=== PATIENT | female | born 1945 ===

== ENCOUNTER 2017-02-09 00:31 | Observation (INO) | payer MEDICAID ==
--- NOTE | 2017-02-09 01:35 | ED PDOC ---
HPI: Chest Pain Time Seen by Provider: 02/09/17 00:38 Chief Complaint (Nursing): Chest Pain Chief Complaint (Provider): Chest Pain History Per: Patient History/Exam Limitations: no limitations Current Symptoms Are (Timing): Still Present Associated Symptoms: Other (lower extremity swelling) Additional Complaint(s): 71 year old female presents to ED with complaints of chest pain and SOB since earlier today and has a past medical history of end-stage renal disease and HTN. Patient notes that she arrived from the [facility] yesterday and was scheduled to undergo dialysis tomorrow. (-) fever or chills, (+) bilateral lower extremity swelling (improving with time). PCP: ARELIS Past Medical History Reviewed: Historical Data, Nursing Documentation, Vital Signs Vital Signs: Last Vital Signs Temp 98.5 F 02/09/17 06:36 Pulse 76 02/09/17 06:36 Resp 20 02/09/17 06:36 BP 142/68 02/09/17 06:36 Pulse Ox 99 02/09/17 06:40 - Medical History PMH: HTN, End Stage Renal Disease - Family History Family History: States: Unknown Family Hx - Living Arrangements Living Arrangements: With Family - Social History Drugs: Denies - Home Medications Home Medications: Ambulatory Orders Medication Instructions Recorded amLODIPine [Norvasc] 5 mg PO DAILY 02/09/17 - Allergies Allergies/Adverse Reactions: Allergies Allergy/AdvReac Type Severity Reaction Status Date / Time No Known Allergies Allergy Verified 02/09/17 00:38 FELICIA Risk Score for UA/NSTEMI - FELICIA Risk Score Age > 64: YES FELICIA Score: 1 Risk %: 5% Curb-65 Severity Score - CURB-65 Severity Score Confusion: No Respiratory Rate greater than/equal to 30: No Systolic BP <90 or Diastolic BP less than/equal 60mmHg: No Age >64: Yes Curb-65 Score: 1 Percentage 30-day mortality: 2.7% Wells Criteria for PE - Wells Criteria for Pulmonary Embolism Heart Rate >100: No Immobilization at least 3 days;Surgery previous 4 weeks: No Hemoptysis: No Malignancy w/treatment within 6 months, or palliative: No Total Score: 0 Review of Systems ROS Statement: Except As Marked, All Systems Reviewed And Found Negative Constitutional: Negative for: Fever, Chills Cardiovascular: Positive for: Chest Pain Respiratory: Positive for: Shortness of Breath Musculoskeletal: Positive for: Other (bilateral lower extremity swelling) Physical Exam - Reviewed Nursing Documentation Reviewed: Yes Vital Signs Reviewed: Yes - Physical Exam Appears: Positive for: Well, Non-toxic, No Acute Distress Head Exam: Positive for: ATRAUMATIC, NORMOCEPHALIC Skin: Positive for: Normal Color, Warm, Dry Eye Exam: Positive for: Normal appearance, EOMI, PERRL ENT: Positive for: Normal ENT Inspection Neck: Positive for: Normal, Painless ROM, Supple Cardiovascular/Chest: Positive for: Regular Rate, Rhythm. Negative for: Murmur Respiratory: Positive for: Normal Breath Sounds. Negative for: Respiratory Distress Gastrointestinal/Abdominal: Positive for: Normal Exam, Soft. Negative for: Tenderness Back: Positive for: Normal Inspection Extremity: Positive for: Normal ROM, Swelling (trace pitting edema in bilateral lower extremities). Negative for: Deformity Neurologic/Psych: Positive for: Alert, Oriented. Negative for: Motor/Sensory Deficits - Laboratory Results Result Diagrams: 02/09/17 01:30 02/09/17 01:30 - ECG O2 Sat by Pulse Oximetry: 99 (RA) Pulse Ox Interpretation: Normal Medical Decision Making Medical Decision Makin Initial impression: r/o ACS v renal failure Initial plan: * T&S * EKG * Labs * Trop I * PTT/PT * CXR * UA [id number] Chou (hospitalist), who accepts patient admission for OBS TELE. Will consult with nephrology for dialysis. [address] Henry (nephrology), who will dialyze patient today in OBS TELE. Scribe Attestation: Documented by Virginia Rowe acting as a scribe for Diaz Webb MD. Scribe Attestation: All medical record entries made by the Scribe were at my direction and personally dictated by me. I have reviewed the chart and agree that the record accurately reflects my personal performance of the history, physical exam, medical decision making, and the department course for this patient. I have also personally directed, reviewed, and agree with the discharge instructions and disposition. Disposition - Clinical Impression Clinical Impression: Chest pain, End stage renal disease, Hyperkalemia - Patient ED Disposition Is Patient to be Admitted: Yes (OBS TELE) Discussed With : Lex Mughni Doctor Will See Patient In The: Hospital Counseled Patient/Family Regarding: Studies Performed, Diagnosis - Disposition Disposition Time: 02:24 Condition: STABLE - Pt Status Changed To: Hospital Disposition Of: Observation
[2017-02-09 01:46] LABS: BASO % 0.6 % (0.0-2.0); EOS # 0.9 K/uL (0.0-0.7); EOS % 11.3 % (0.0-4.0); LYMPH # 1.9 K/uL (1.0-4.3); LYMPH % 24.5 % (20.0-40.0); MEAN CELL VOLUME 94.1 fl (81.0-99.0); MEAN CORPUSCULAR HEMOGLOBIN 30.4 pg (27.0-31.0); MEAN CORPUSCULAR HGB CONC 32.3 g/dL (33.0-37.0); MEAN PLATELET VOLUME 9.7 fl (7.2-11.7); MONO # 0.6 K/uL (0.0-0.8); MONO % 8.1 % (0.0-10.0); NEUT # 4.3 K/uL (1.8-7.0); NEUT % 55.5 % (50.0-75.0); NRBC % 0.1 % (0.0-0.0); RBC 3.62 Mil/uL (3.80-5.20); WHITE BLOOD COUNT 7.7 K/uL (4.8-10.8)
[2017-02-09 01:54] LABS: SQUAMOUS EPITHIAL 1 /hpf (0-5); URINE BACTERIA RARE (<OCC); URINE BILIRUBIN NEGATIVE (NEGATIVE); URINE BLOOD SMALL (NEGATIVE); URINE CLARITY CLEAR (Clear); URINE COLOR STRAW (YELLOW); URINE GLUCOSE (UA) 50 mg/dL (Normal); URINE NITRATE NEGATIVE (NEGATIVE); URINE PROTEIN 100 mg/dL (NEGATIVE); URINE UROBILINOGEN 0.2-1.0 mg/dL (0.2-1.0)
[2017-02-09 02:00] LABS: CALCIUM 8.5 mg/dL (8.4-10.2)
[2017-02-09 02:01] LABS: URINE LEUKOCYTE ESTERASE SMALL Leu/uL (Negative)
[2017-02-09 02:05] LABS: INR 0.9 (0.9-1.2); PARTIAL THROMBOPLASTIN TIME 28.4 Seconds (25.6-37.1); PROTHROMBIN TIME 9.6 Seconds (9.8-13.1)
[2017-02-09 02:14] LABS: TROPONIN I 0.02 ng/mL (0.00-0.120)
[2017-02-09] MEDS ORDERED: Insulin Regular 100 units/ml IV STA (02:39)
[2017-02-09] MEDS ORDERED: Sod Polystyrene Sulf 15 gm/60 ml Oral Susp PO ONE (02:40)
[2017-02-09] MEDS ORDERED: Dextrose 50% SYRINGE Inj (50 ml) IVP ONE ×3 (02:40→13:58)
[2017-02-09] MEDS ORDERED: Sod Polystyrene Sulf 15 gm/60 ml Oral Susp ONE (03:55)
[2017-02-09] MEDS ORDERED: Dextrose 50% SYRINGE Inj (50 ml) ONE ×3 (03:55→08:39)
[2017-02-09] MEDS ORDERED: Insulin Regular 100 units/ml ONE (03:55)
[2017-02-09] MEDS ORDERED: Albuterol-Ipratrop 3 mg / 0.5 (3 ml) UD INH PRN (04:31)
--- NOTE | 2017-02-09 07:06 | CP.PCM.HP ---
History of Present Illness - History of Present Illness History of Present Illness: Chief Complaint: Chest Tightness & SOB HPI: Pt is a 71 year old female who comes from the [facility] with a pmhx of ESRD on HD ( & ) in the [facility], port placememnt in the right subclavian, HTN and anemia according to the family at bedside. PT family giving history. She presents to ED with complaints of chest tightness which has subsequently resolved with negative trop x 1 and an EKG showing peaked t waves with a K of 5.6. PT SOB is associated with elevated pro bnp level and bilateral pedal edema. PT had arrived from the [facility] yesterday and was scheduled to undergo dialysis tomorrow however presented here bc the family was worried about her symptoms. denies fever, chills, active chest pain, denies SOB currently only has (+) bilateral lower extremity swelling. Reed score 2 PCP: NONE Last Vital Signs Temp 98.0 F 02/09/17 05:16 Pulse 74 02/09/17 05:16 Resp 20 02/09/17 05:16 BP 177/81 H 02/09/17 05:16 Pulse Ox 99 02/09/17 05:20 PMH: HTN, End Stage Renal Disease, anemia Social HX: no toxic habits, ex smoker of over 30 yrs Family History: no Family Hx, lives with family ( granddaughter) Living Arrangements: With Family Ambulatory Orders Medication Instructions Recorded amLODIPine [Norvasc] 5 mg PO DAILY 02/09/17 Allergies Allergy/AdvReac Type Severity Reaction Status Date / Time No Known Allergies Allergy Verified 02/09/17 00:38 14 ROS- positive for pedal edema all the rest are currently negative - ECG O2 Sat by Pulse Oximetry: 99 (RA) Pulse Ox Interpretation: Normal Dr. Henry (nephrology), who will dialyze patient today in OBS TELE. Present on Admission - Present on Admission Any Indicators Present on Admission: No History of DVT/PE: No History of Uncontrolled Diabetes: No Urinary Catheter: No Decubitus Ulcer Present: No Review of Systems - Constitutional Constitutional: absent: As Per HPI, Anorexia, Chills, Daytime Sleepiness, Excessive Sweating, Fatigue, Fever, Frequent Falls, Headache, Increased Appetite , Lethargy, Malaise, Night Sweats, Snoring, Sleep Apnea, Weight Gain, Weight Loss, Weakness, Other - EENT Eyes: absent: As Per HPI, Blind Spots, Blurred Vision, Change in Vision, Decreased Night Vision, Diplopia, Discharge, Dry Eye, Exophthalmos, Floaters, Irritation, Itchy Eyes, Loss of Peripheral Vision, Pain, Photophobia, Requires Corrective Lenses, Sees Flashes, Spots in Vision, Tunnel Vision, Other Visual Disturbances, Loss of Vision, Other Ears: absent: As Per HPI, Decreased Hearing, Ear Discharge, Ear Pain, Tinnitus, Abnormal Hearing, Disequilibrium, Dizziness, Other Nose/Mouth/Throat: absent: As Per HPI, Epistaxis, Nasal Congestion, Nasal Discharge, Nasal Obstruction, Nasal Trauma, Nose Pain, Post Nasal Drip, Sinus Pain, Sinus Pressure, Bleeding Gums, Change in Voice, Dental Pain, Dry Mouth, Dysphagia, Halitosis, Hoarsness, Lip Swelling, Mouth Lesions, Mouth Pain, Odynophagia, Sore Throat, Throat Swelling, Tongue Swelling, Facial Pain, Neck Pain, Neck Mass, Other - Cardiovascular Cardiovascular: Chest Pain, Dyspnea on Exertion, Orthopnea - Gastrointestinal Gastrointestinal: absent: As Per HPI, Abdominal Pain, Belching, Bloating, Change in Bowel Habits, Change in Stool Character, Coffee Ground Emesis, Constipation, Cramping, Diarrhea, Dyspepsia, Dysphagia, Early Satiety, Excessive Flatus, Fecal Incontinence, Heartburn, Hematemesis, Hematochezia, Loose Stools, Melena, Nausea, Odynophagia, Temesmus, Vomiting, Other - Musculoskeletal Musculoskeletal: absent: As Per HPI, Abnormal Gait, Arthralgias, Atrophy, Back Pain, Deformity, Joint Swelling, Limited Range of Motion, Loss of Height, Muscle Cramps, Muscle Weakness, Myalgias, Neck Pain, Numbness, Radiating Pain into Limb, Stiffness, Tingling, Other - Integumentary Integumentary: absent: As Per HPI, Acne, Alopecia, Bleeding Lesions, Change in Hair, Change in Nails, Change in Pigmentation, Changing Lesions, Dry Skin, Erythema, Furuncle, Hirsutism, Lesions, New Lesions, Non-Healing Lesions, Photosensitivity, Pruritus, Rash, Skin Pain, Skin Ulcer, Sores, Striae, Swelling , Unusual Bruising, Wounds, Jaundice, Other - Neurological Neurological: absent: As Per HPI, Abnormal Gait, Abnormal Hearing, Abnormal Movements, Abnormal Speech, Behavioral Changes, Burning Sensations, Confusion, Convulsions, Disequilibrium, Dizziness, Numbness, Focal Weakness, Frequent Falls , Headaches, Lack of Coordination, Loss of Vision, Memory Loss, Paresthesias, Radicular Pain, Restless Legs, Sensory Deficit, Syncope, Tingling, Tremor, Vertigo, Weakness, Other Visual Disturbances, Other - Psychiatric Psychiatric: absent: As Per HPI, Abnormal Sleep Pattern, Anhedonia, Anxiety, Auditory Hallucinations, Behavioral Changes, Change in Appetite, Change in Libido, Confusion, Depression, Difficulty Concentrating, Hallucinations, Homicidal Ideation, Hopelessness, Irritability, Memory Loss, Mood Swings, Panic Attacks, Paranoia, Suicidal Ideation, Visual Hallucinations, Tactile Hallucinations, Other Past Patient History - Past Medical History & Family History Past Medical History?: No - Past Social History Smoking Status: Former Smoker Chewing Tobacco Use: No Cigar Use: No Drugs: Denies Home Situation {Lives}: With Family - CARDIAC Hx Hypertension: Yes - PULMONARY Hx Respiratory Disorders: No - NEUROLOGICAL Hx Neurological Disorder: No - HEENT Hx HEENT Problems: No - RENAL Hx Chronic Kidney Disease: Yes (ERSD) - ENDOCRINE/METABOLIC Hx Endocrine Disorders: No - HEMATOLOGICAL/ONCOLOGICAL Hx Blood Disorders: No - INTEGUMENTARY Hx Dermatological Problems: No - MUSCULOSKELETAL/RHEUMATOLOGICAL Hx Musculoskeletal Disorders: No - GENITOURINARY/GYNECOLOGICAL Hx Genitourinary Disorders: No - PSYCHIATRIC Hx Psychophysiologic Disorder: No Meds Allergies/Adverse Reactions: Allergies Allergy/AdvReac Type Severity Reaction Status Date / Time No Known Allergies Allergy Verified 02/09/17 00:38 Physical Exam - Head Exam Head Exam: ATRAUMATIC, NORMAL INSPECTION, NORMOCEPHALIC - Eye Exam Eye Exam: EOMI, Normal appearance, PERRL Pupil Exam: NORMAL ACCOMODATION - ENT Exam ENT Exam: Mucous Membranes Moist, Normal Exam - Respiratory Exam Respiratory Exam: Decreased Breath Sounds, NORMAL BREATHING PATTERN - Cardiovascular Exam Cardiovascular Exam: REGULAR RHYTHM, +S1, +S2 - GI/Abdominal Exam GI & Abdominal Exam: Normal Bowel Sounds - Extremities Exam Extremities exam: Positive for: pedal edema - Back Exam Back exam: NORMAL INSPECTION - Neurological Exam Neurological exam: CN II-XII Intact, Oriented x3 - Psychiatric Exam Psychiatric exam: Normal Affect, Normal Mood - Skin Skin Exam: Dry, Intact Results - Vital Signs Recent Vital Signs: Last Vital Signs Temp 98.5 F 02/09/17 06:36 Pulse 76 02/09/17 06:36 Resp 20 02/09/17 06:36 BP 142/68 02/09/17 06:36 Pulse Ox 99 02/09/17 06:40 - Labs Result Diagrams: 02/09/17 01:30 02/09/17 01:30 Labs: Laboratory Results - last 24 hr 02/09/17 02/09/17 03:35 04:55 Free T4 0.95 Blood Type A POSITIVE Antibody Screen Positive Antibody Identification Anti K BBK History Checked No verified bt - EKG Data EKG Interpreted by: Other (diffuse peaked t waves) EKG shows normal: Sinus rhythm Assessment & Plan - Assessment and Plan (Free Text) Assessment: PT is a 71 yo female with ESRD on HD, unknown cause of renal failure this past year who gets dilaysis 2x weekly normally at the [facility]. Pt comes in with chest discomfort and SOB which seemed to have resolved in th ED. Trop x 1 negative. 1) Chest pain- rule out ACS, atypical chest pain - serial trop and EKG - echo - shuttle driver - plavix and bblocker - 2) ESRD on HD- pt to get Dilaysis late in AM 3) hyperkalemia- pt recieved calcium and kayexelate, d50 insulin 4) HTN- pt started on medication 5) Anemia- hg stable 6) Gi and DVT prophylaxis - Date & Time Date: 02/09/17 Time: 07:21
--- NOTE | 2017-02-09 07:22 | CARD ---
APPROVED REPORT EKG Measurement Heart [id number] [place] [id number] <Conclusion> Normal sinus rhythm Right bundle branch block Abnormal ECG
[2017-02-09 07:46] LABS: CALCIUM 8.9 mg/dL (8.4-10.2)
[2017-02-09 07:57] LABS: TROPONIN I 0.025 ng/mL (0.00-0.120)
--- NOTE | 2017-02-09 09:37 | PCM.RRTMUL ---
<Deisy Huynh - Last Filed: 02/09/17 09:37> COLLAR TURNER OPERATOR Nurse Assessment - Vital Signs Blood Pressure:: 204/82 Pulse Rate:: 81 Respiratory Rate:: 20 Temperature:: 97.3 F I.Reason for COLLAR TURNER OPERATOR - A) Acute Change in Patient: Subjective: COLLAR TURNER OPERATOR called 08:32 am for altered mental status. Patient is a 71 yo F with hx ESRD, received insulin in the ED due to elevated K. Fingerstick glucose 26. On arrival pt appeared lethatric and drowsy, was not verbalizing, was breathing and saturating well. Vitals: BP 221/73, HR 77 - hypertensive urgency. Pt was given 1.5 ampules D50 and 10 mg hydralazine via IVP. EKG was performed that showed no acute changes from prior EKG. Repeat fingerstick was 332, repeat blood pressure was 184/71, HR 73. Patient became more responsive and verbal, was responding to questions. Assessment: 71 yo F with hx ESRD who received insulin in the ED due to elevated K in ED, had COLLAR TURNER OPERATOR called due to hypoglycemia (blood glucose 26) and found to have hypertensive urgency during COLLAR TURNER OPERATOR. Plan: Accuchecks Q2H until 12:00 Resume home anti-hypertensive medications (metoprolol, amlodipine) <Susana Love - Last Filed: 02/09/17 13:56> Attending/Attestation - Attestation I have personally seen and examined this patient.: Yes I have fully participated in the care of the patient.: Yes I have reviewed all pertinent clinical information, including history, physical exam and plan: Yes Notes (Text): Responded to the COLLAR TURNER OPERATOR with the residents, case discussed, agree with above note. COLLAR TURNER OPERATOR called bec of lethargy - pt found to be Hypoglycemic - Glucose =26 Pt is a 71y lady with hx of ESRD on HD. Received Regular Insulin and D50 for Hyperkalemia in the ED. BP noted to be markedly elevated 202/84 A/P: 1. AMS sec to Hypoglycemia 2. Hypertensive Urgency - D50 1 1/2 ampule given - pt became more alert after infusion, rpt glucose 320 - Hydralazine 10mg IV x 1 , rpt BP 180 systolic
--- NOTE | 2017-02-09 11:11 | RAD ---
HISTORY: ESRD, CP and SOB COMPARISON: No prior. TECHNIQUE: Chest PA and lateral FINDINGS: LUNGS: Hyperinflation, manifestations of COPD. No active pulmonary disease. PLEURA: No significant pleural effusion identified. No pneumothorax apparent. CARDIOVASCULAR: No radiographic findings to suggest acute or significant cardiovascular disease. Satisfactory position of dialysis catheter. OSSEOUS STRUCTURES: No significant abnormalities. VISUALIZED UPPER ABDOMEN: Normal. OTHER FINDINGS: None. IMPRESSION: No active disease.
--- NOTE | 2017-02-09 12:51 | CARD ---
APPROVED REPORT EXAM: Two-dimensional and M-mode echocardiogram with Doppler and color Doppler. Other Information Quality : GoodRhythm : NSR INDICATION ELEVATED BNP 2D DIMENSIONS IVSd1.63 (0.7-1.1cm)LVDd4.43 (3.9-5.9cm) LVOT Diameter1.91 (1.8-2.4cm)PWd0.83 (0.7-1.1cm) IVSs1.25 (0.8-1.2cm)LVDs3.47 (2.5-4.0cm) FS (%) 21.8 %PWs1.21 (0.8-1.2cm) M-Mode DIMENSIONS Left Atrium (MM)4.26 (2.5-4.0cm)IVSd1.29 (0.7-1.1cm) Aortic Root2.26 (2.2-3.7cm)LVDd4.38 (4.0-5.6cm) Aortic Cusp Exc.1.59 (1.5-2.0cm)PWd1.38 (0.7-1.1cm) IVSs1.47 cmFS (%) 39 % LVDs2.68 (2.0-3.8cm)PWs1.71 cm Aortic Valve AI P 1/2 [id number] Mitral Valve E/A ratio0.0 TDI E/Lateral E'0.0E/Medial E'0.0 Pulmonary Valve PV Peak Xtxzhtko07.4cm/s Tricuspid Valve TR Peak Ajunmaxo825sr/sRAP [id number] Peak Gr.42mmHg [id number] LEFT VENTRICLE The left ventricle is normal size. There is borderline to mild concentric left ventricular hypertrophy. Left ventricle systolic function is normal. The Ejection Fraction is 65-70%. There is normal LV segmental wall motion. Mitral inflow signal severely affected by AR. RIGHT VENTRICLE The right ventricle is normal size. There is normal right ventricular wall thickness. The right ventricular systolic function is normal. ATRIA The left atrium is moderately dilated. The right atrium is moderately dilated. AORTIC VALVE The aortic valve is mildly to moderately sclerotic. There is moderate aortic regurgitation. There is no aortic valvular stenosis. MITRAL VALVE The mitral valve is normal in structure. There is no evidence of mitral valve prolapse. There is no mitral valve stenosis. Mitral regurgitation is moderate. TRICUSPID VALVE The tricuspid valve is normal in structure. There is moderate to severe tricuspid regurgitation. Right ventricular systolic pressure is estimated at 55 mmHg. There is moderate to severe pulmonary hypertension. PULMONIC VALVE The pulmonary valve is normal in structure and function. There is trace to mild pulmonic valvular regurgitation. GREAT VESSELS The aortic root is normal in size. The IVC was not visualized. PERICARDIAL EFFUSION The pericardium appears normal. <Conclusion> The left ventricle is normal size. There is borderline to mild concentric left ventricular hypertrophy. There is normal LV segmental wall motion. Left ventricle systolic function is normal. The Ejection Fraction is 65-70%. The left atrium is moderately dilated. The right atrium is moderately dilated. The aortic valve is mildly to moderately sclerotic. There is moderate aortic regurgitation. Mitral regurgitation is moderate. There is moderate to severe tricuspid regurgitation. There is moderate to severe pulmonary hypertension.
--- NOTE | 2017-02-09 13:19 | CARD ---
APPROVED REPORT EKG Measurement Heart [id number] [place] 150P48 [id number] <Conclusion> Normal sinus rhythm Right bundle branch block Abnormal ECG
--- NOTE | 2017-02-09 13:35 | NM ---
COMPARISON: February 08, 2017. TECHNIQUE: 41.6 mCi technetium 99-m DTPA aerosol. 5.1 mCI technetium 99-m MAA administered intravenously. FINDINGS: VENTILATION COMPONENT: Heterogeneous ventilation. Retention of radionuclide in the central tracheobronchial tree an ingested radionuclide in the esophagus and stomach. PERFUSION COMPONENT: Matched defects right lower lobe the ventilatory defect larger than the perfusion component. IMPRESSION: Low probability ventilation perfusion scan for pulmonary embolism.
[2017-02-09 17:46] LABS: HEMOGLOBIN 11.2 g/dL (12.0-16.0); MEAN CELL VOLUME 93.9 fl (81.0-99.0); RBC 3.6 Mil/uL (3.80-5.20); WHITE BLOOD COUNT 4.9 K/uL (4.8-10.8)
[2017-02-09 17:53] LABS: CALCIUM 8.3 mg/dL (8.4-10.2)
[2017-02-09 18:04] LABS: TROPONIN I 0.029 ng/mL (0.00-0.120)
--- NOTE | 2017-02-09 18:09 | CP.PCM.CON ---
History of Present Illness - History of Present Illness History of Present Illness: 71 yo F w/ pmh of ESRD on HD (since January 2016, reportedly due to "chronic glomerulonephritis"), presented to ED this morning with shortness of breath and chest pain; patient was found to be hyperkalemic and admitted for possible PE and to r/o [place]; nephrology service being consulted for ESRD care; Patient has been on HD since January 2016 in the [facility]; etiology of renal failure unclear; per family, patient had been bedridden for 2 months when care initially started but has since improved and is ambulatory; Gets HD every Sunday and Sunday (last session 3 days ago per routine); dry weight is about 47 kg and generally gets about 2L UF; Patient reportedly had AVF but due to severe pain was ligated? Currently being dialyzed via R IJ HD catheter; Reports getting shortness of breath on exertion this morning and so brought to ED; otherwise reports urinating well; Review of Systems - Constitutional Constitutional: Chills. absent: Fever Additional comments: Good appetite - EENT Eyes: absent: Blurred Vision Nose/Mouth/Throat: absent: Dysphagia - Cardiovascular Cardiovascular: Chest Pain, Dyspnea on Exertion - Respiratory Respiratory: Dyspnea on Exertion - Gastrointestinal Gastrointestinal: Diarrhea. absent: Nausea, Vomiting - Genitourinary Genitourinary: absent: Difficulty Urinating, Dysuria - Integumentary Integumentary: absent: Pruritus, Rash - Neurological Neurological: Dizziness. absent: Sensory Deficit - Psychiatric Psychiatric: Abnormal Sleep Pattern Additional comments: denies depression; - Hematologic/Lymphatic Hematologic: absent: Easy Bruising Past Patient History - Past Medical History & Family History Past Medical History?: Yes Pertinent Family History: No significant family history per patient; - Past Social History Smoking Status: Former Smoker Chewing Tobacco Use: No Cigar Use: No Drugs: Denies Home Situation {Lives}: With Family - CARDIAC Hx Hypertension: Yes - PULMONARY Hx Respiratory Disorders: No - NEUROLOGICAL Hx Neurological Disorder: No - HEENT Hx HEENT Problems: No - RENAL Hx Chronic Kidney Disease: Yes (ERSD) - ENDOCRINE/METABOLIC Hx Endocrine Disorders: No - HEMATOLOGICAL/ONCOLOGICAL Hx Blood Disorders: No - INTEGUMENTARY Hx Dermatological Problems: No - MUSCULOSKELETAL/RHEUMATOLOGICAL Hx Musculoskeletal Disorders: No - GENITOURINARY/GYNECOLOGICAL Hx Genitourinary Disorders: No - PSYCHIATRIC Hx Psychophysiologic Disorder: No Meds Allergies/Adverse Reactions: Allergies Allergy/AdvReac Type Severity Reaction Status Date / Time No Known Allergies Allergy Verified 02/09/17 00:38 - Medications Medications: Current Medications Albuterol/Ipratropium (Duoneb 3 Mg/0.5 Mg (3 Ml) Ud) 3 ml INH RQ6 PRN PRN Reason: Shortness of Breath Amlodipine Besylate (Norvasc) 10 mg PO DAILY [facility] Last Admin: 02/09/17 11:02 Dose: 10 mg Atorvastatin Calcium (Lipitor) 40 mg PO DAILY [facility] Last Admin: 02/09/17 11:01 Dose: 40 mg Clopidogrel Bisulfate (Plavix) 75 mg PO DAILY [facility] Last Admin: 02/09/17 11:04 Dose: 75 mg Famotidine (Pepcid) 20 mg PO DAILY [facility] Last Admin: 02/09/17 11:01 Dose: 20 mg Hydralazine HCl (Apresoline) 10 mg PO QID [facility] Metoprolol Tartrate (Lopressor) 12.5 mg PO Q12 [facility] Last Admin: 02/09/17 11:02 Dose: 12.5 mg Nitroglycerin (Nitrostat Sl Tab) 0.4 mg SL Q5M PRN PRN Reason: Pain, moderate (4-7) Physical Exam - Constitutional Appears: Non-toxic, No Acute Distress - Head Exam Head Exam: NORMAL INSPECTION - Eye Exam Eye Exam: Normal appearance. absent: Scleral icterus - ENT Exam ENT Exam: Mucous Membranes Moist - Neck Exam Neck exam: Positive for: Normal Inspection. Negative for: Lymphadenopathy - Respiratory Exam Respiratory Exam: NORMAL BREATHING PATTERN. absent: Rales, Rhonchi, Wheezes, Respiratory Distress Additional comments: Mildly decreased basal breath sounds; - Cardiovascular Exam Cardiovascular Exam: REGULAR RHYTHM, +S1, +S2 - GI/Abdominal Exam GI & Abdominal Exam: Soft. absent: Distended, Tenderness - Exam Exam: absent: Bladder Distension - Extremities Exam Additional comments: Mild b/l lower leg edema; - Neurological Exam Neurological exam: Alert Additional comments: No numbness in feet; - Psychiatric Exam Psychiatric exam: Normal Mood - Skin Skin Exam: Normal Color, Warm Results - Vital Signs Recent Vital Signs: Last Vital Signs Temp 97.7 F 02/09/17 15:55 Pulse 66 02/09/17 15:55 Resp 20 02/09/17 15:55 BP 144/65 02/09/17 15:55 Pulse Ox 98 02/09/17 15:55 - Labs Result Diagrams: 02/09/17 17:37 02/09/17 17:37 Labs: Laboratory Results - last 24 hr 02/09/17 02/09/17 16:07 17:37 WBC 4.9 RBC 3.60 L Hgb 11.2 L Hct 33.8 L MCV 93.9 MCH 31.0 MCHC 33.0 RDW 15.0 H Plt Count 126 L POC Glucose (mg/dL) 119 H - Imaging and Cardiology Chest x-ray Status: Image reviewed by me Additional comment: Hyperinflated lungs; no obvious vascular congestion; Assessment & Plan (1) End stage renal disease Assessment and Plan: Etiology unclear; not diabetic; likely has significant amount of residual renal function left to allow her to only need HD twice a week; currently with mild volume excess on exam, likely due to the fact that patient was due for HD late yesterday (taking into account difference in time zones); mild hyperkalemia; -Dialyzing urgently on 2K/2.5Ca/34HCO3 dialysate over 3.5hrs with 2L net UF Status: Chronic (2) Pulmonary HTN Assessment and Plan: Per echo report; otherwise lungs appear clear; unclear if this is secondary to underlying lung disease; UF on HD may be helpful; Status: Chronic (3) Anemia Assessment and Plan: At goal for ESRD patient (10-11g); was on EPO previously; will check iron studies; will hold off on EPO for now; Status: Chronic (4) Chronic kidney disease-mineral and bone disorder Assessment and Plan: Low/normal Ca level; will check phos level and PTH; Status: Chronic (5) Hyperkalemia Assessment and Plan: Secondary to ESRD status; treated medically initially; will remove further K with HD; Status: Acute (6) Hypertensive CKD (chronic kidney disease) Assessment and Plan: Hypertensive urgency on presentation; improved with IV hydralazine; further improvement with UF on HD; currently on metoprolol 12.5 mg bid, amlodpine 10 mg daily and hydralazine 10 mg qid; will start on lasix 80 mg PO bid on non-HD days ; Status: Acute
[2017-02-09 21:20] LABS: HEPATITIS B SURFACE AG NEGATIVE (NEGATIVE)
[2017-02-09 21:26] LABS: HEPATITIS A IGM NEGATIVE (NEGATIVE); HEPATITIS B CORE AB NEGATIVE (NEGATIVE)
[2017-02-09 21:38] LABS: HEPATITIS C ANTIBODY NEGATIVE (NEGATIVE)
[2017-02-09 23:58] VITALS: RESP 18
[2017-02-10 07:38] LABS: BASO % 0.8 % (0.0-2.0); EOS # 0.5 K/uL (0.0-0.7); EOS % 9.2 % (0.0-4.0); HEMOGLOBIN 11.1 g/dL (12.0-16.0); LYMPH # 1.9 K/uL (1.0-4.3); LYMPH % 31.5 % (20.0-40.0); MEAN CELL VOLUME 94.1 fl (81.0-99.0); MEAN CORPUSCULAR HEMOGLOBIN 30.4 pg (27.0-31.0); MEAN CORPUSCULAR HGB CONC 32.3 g/dL (33.0-37.0); MEAN PLATELET VOLUME 10.4 fl (7.2-11.7); MONO # 0.5 K/uL (0.0-0.8); MONO % 8.8 % (0.0-10.0); NEUT % 49.7 % (50.0-75.0); RBC 3.66 Mil/uL (3.80-5.20); RED CELL DISTRIBUTION WIDTH 15.4 % (11.5-14.5)
[2017-02-10 07:49] LABS: ALB/GLOB RATIO 1.4 (1.0-2.1); ALBUMIN 3.9 g/dL (3.5-5.0); CALCIUM 8.2 mg/dL (8.4-10.2)
[2017-02-10 08:12] LABS: IRON 45 ug/dL (37-170)
[2017-02-10 08:22] LABS: % IRON SATURATION 20 % (20-55); TOTAL IRON BINDING CAPACITY 224 ug/dL (250-450)
--- NOTE | 2017-02-10 08:26 | CP.PCM.DIS ---
Provider - Provider Date of Admission: 02/09/17 13:32 Attending physician: Miquel Chou MD Consults: Nephrology : Dr Henry Time Spent in preparation of Discharge (in minutes): 40 Diagnosis - Discharge Diagnosis (1) End stage renal disease Status: Chronic (2) Hypertensive urgency Status: Acute (3) Chest pain Status: Acute (4) Hyperkalemia Status: Acute (5) Pulmonary HTN Status: Chronic Hospital Course - Lab Results Lab Results: Most Recent Lab Values WBC 6.0 K/uL (4.8-10.8) 02/10/17 06:00 RBC 3.66 Mil/uL (3.80-5.20) L 02/10/17 06:00 Hgb 11.1 g/dL (12.0-16.0) L 02/10/17 06:00 Hct 34.4 % (34.0-47.0) 02/10/17 06:00 MCV 94.1 fl (81.0-99.0) 02/10/17 06:00 MCH 30.4 pg (27.0-31.0) 02/10/17 06:00 MCHC 32.3 g/dL (33.0-37.0) L 02/10/17 06:00 RDW 15.4 % (11.5-14.5) H 02/10/17 06:00 Plt Count 105 K/uL (130-400) L D 02/10/17 06:00 MPV 10.4 fl (7.2-11.7) 02/10/17 06:00 Neut % (Auto) 49.7 % (50.0-75.0) L 02/10/17 06:00 Lymph % (Auto) 31.5 % (20.0-40.0) 02/10/17 06:00 Dukes % (Auto) 8.8 % (0.0-10.0) 02/10/17 06:00 Eos % (Auto) 9.2 % (0.0-4.0) H 02/10/17 06:00 Baso % (Auto) 0.8 % (0.0-2.0) 02/10/17 06:00 Neut # 3.0 K/uL (1.8-7.0) 02/10/17 06:00 Lymph # 1.9 K/uL (1.0-4.3) 02/10/17 06:00 Dukes # 0.5 K/uL (0.0-0.8) 02/10/17 06:00 Eos # 0.5 K/uL (0.0-0.7) 02/10/17 06:00 Baso # 0.0 K/uL (0.0-0.2) 02/10/17 06:00 PT 9.6 Seconds (9.8-13.1) L 02/09/17 01:30 INR 0.9 (0.9-1.2) 02/09/17 01:30 APTT 28.4 Seconds (25.6-37.1) 02/09/17 01:30 Sodium 137 mmol/l (132-148) 02/10/17 06:00 Potassium 4.1 MMOL/L (3.6-5.0) 02/10/17 06:00 Chloride 98 mmol/L (98-107) 02/10/17 06:00 Carbon Dioxide 29 mmol/L (22-30) 02/10/17 06:00 Anion Gap 14 (10-20) 02/10/17 06:00 BUN 23 mg/dl (7-17) H 02/10/17 06:00 Creatinine 4.6 mg/dL (0.7-1.2) H 02/10/17 06:00 Est GFR ( Amer) 11 02/10/17 06:00 Est GFR (Non-Af Amer) 9 02/10/17 06:00 POC Glucose (mg/dL) 93 mg/dL (65-110) 02/10/17 06:40 Random Glucose 93 mg/dL (65-105) 02/10/17 06:00 Calcium 8.2 mg/dL (8.4-10.2) L 02/10/17 06:00 Phosphorus 5.6 mg/dl (2.5-4.5) H 02/10/17 06:00 Total Bilirubin 0.5 mg/dl (0.2-1.3) 02/10/17 06:00 AST 38 U/L (14-36) H 02/10/17 06:00 ALT 30 U/L (9-52) 02/10/17 06:00 Alkaline Phosphatase 93 U/L (38-126) 02/10/17 06:00 Troponin I 0.0290 ng/mL (0.00-0.120) 02/09/17 17:37 NT-Pro-B Natriuret Pep 22052 pg/ml (0-900) H 02/09/17 01:30 Total Protein 6.8 G/DL (6.3-8.2) 02/10/17 06:00 Albumin 3.9 g/dL (3.5-5.0) 02/10/17 06:00 Globulin 2.9 gm/dL (2.2-3.9) 02/10/17 06:00 Albumin/Globulin Ratio 1.4 (1.0-2.1) 02/10/17 06:00 Triglycerides 130 mg/DL (0-149) 02/09/17 07:20 Cholesterol 269 mg/dL (0-199) H 02/09/17 07:20 LDL Cholesterol Direct 129 mg/dL (0-129) 02/09/17 07:20 HDL Cholesterol 63 MG/DL (30-70) 02/09/17 07:20 Free T4 0.95 ng/dL (0.78-2.19) 02/09/17 04:55 TSH 3rd Generation 1.23 mIU/ML (0.46-4.68) 02/09/17 07:20 Urine Color Straw (YELLOW) 02/09/17 01:30 Urine Clarity Clear (Clear) 02/09/17 01:30 Urine pH 8.0 (5.0-8.0) 02/09/17 01:30 Ur Specific Boyd 1.008 (1.003-1.030) 02/09/17 01:30 Urine Protein 100 mg/dL (NEGATIVE) 02/09/17 01:30 Urine Glucose (UA) 50 mg/dL (Normal) 02/09/17 01:30 Urine Ketones Negative mg/dL (NEGATIVE) 02/09/17 01:30 Urine Blood Small (NEGATIVE) 02/09/17 01:30 Urine Nitrate Negative (NEGATIVE) 02/09/17 01:30 Urine Bilirubin Negative (NEGATIVE) 02/09/17 01:30 Urine Urobilinogen 0.2-1.0 mg/dL (0.2-1.0) 02/09/17 01:30 Ur Leukocyte Esterase Small [place]/uL (Negative) 02/09/17 01:30 Urine RBC (Auto) 4 /hpf (0-3) H 02/09/17 01:30 Urine Microscopic WBC 7 /hpf (0-5) H 02/09/17 01:30 Ur Squamous Epith Cells 1 /hpf (0-5) 02/09/17 01:30 Urine Bacteria Rare (<OCC) 02/09/17 01:30 Hepatitis A IgM Ab Negative (NEGATIVE) 02/09/17 18:18 Hep Bs Antigen Negative (NEGATIVE) 02/09/17 18:18 Hep B Core IgM Ab Negative (NEGATIVE) 02/09/17 18:18 Hepatitis C Antibody Negative (NEGATIVE) 02/09/17 18:18 Blood Type Cancelled 02/09/17 03:35 Antibody Screen Cancelled 02/09/17 03:35 Antibody Identification Cancelled 02/09/17 03:35 BBK History Checked Cancelled 02/09/17 03:35 - Hospital Course Hospital Course: 71 y/o lady , who recently immigrated from the [facility] a few days ago , has a hx of HTN, ESRD on HD, was brought in by family bec of chest pain, SOB and generalized weakness. In the ED, she was noted to be Hyperkalemic, hypertensive. Her HD schedule back in the [facility] was Tuesdays and Fridays. Pt was due for her HD on admission. Pt was observed in Telemetry - EKG showed nonsp ST T changes. TROPONIN x 3 negative. She received IV Hydralazine for her uncontrolled HTN and Kayexalate and Regular Insulin with D50 for her hyperkalemia. She then had a episode of AMS due to hypoglycemia w/c immediately resolved with infusion of D50. Nephrology consulted - who ordered Hemodialysis. Her symptoms improved, her K level went down to normal . Industrial Relations Officer met with pt and family and they were provided with contact information of [facility] - family agreed to privately pay for Outpt HD for now until they are able to get her an insurance. (1) End stage renal disease on HD Status: Chronic Nephrology consulted Pt underwent HD (2) Hypertensive urgency Status: Acute Received IV Hydralazine cont PO Metoprolol, Amlodipine and Dr Henry rec adding Lasix 80 mg bid (3) Chest pain Status: Acute Trop x 3 negative cont BB, Statin ECHO : normal wll motion, however mod to severe Pulm HTN, TR V/Q scan : low probability for PE (4) Hyperkalemia Status: Acute improved with HD, Kayexalate , Lasix and Regular insulin (5) Pulmonary HTN Status: Chronic cont Lasix cont calcium Channel sarhai - ff up with [facility] as outpt Discharge Exam - Head Exam Head Exam: NORMAL INSPECTION, NORMOCEPHALIC - Eye Exam Eye Exam: EOMI, Normal appearance Pupil Exam: NORMAL ACCOMODATION - ENT Exam ENT Exam: Mucous Membranes Moist, Normal External Ear Exam - Neck Exam Neck exam: Full Rom - Respiratory Exam Respiratory Exam: NORMAL BREATHING PATTERN. absent: Respiratory Distress - Cardiovascular Exam Cardiovascular Exam: REGULAR RHYTHM, +S1, +S2 - GI/Abdominal Exam GI & Abdominal Exam: Normal Bowel Sounds, Soft. absent: Tenderness - Extremities Exam Extremities exam: full ROM, normal capillary refill, pedal pulses present - Back Exam Back exam: FULL ROM. absent: CVA tenderness (L), CVA tenderness (R) - Neurological Exam Neurological exam: Alert, CN II-XII Intact, Oriented x3, Reflexes Normal - Psychiatric Exam Psychiatric exam: Normal Affect, Normal Mood - Skin Skin Exam: Dry, Normal Color, Warm Discharge Plan - Discharge Medications Prescriptions: amLODIPine [Norvasc] 10 mg PO DAILY #30 tab Atorvastatin [Lipitor] 20 mg PO DAILY #30 tab Furosemide [Lasix] 80 mg PO BID #120 tablet Metoprolol Tartrate [Lopressor] 12.5 mg PO Q12 #30 tab - Follow Up Plan Condition: IMPROVED Disposition: HOME/ ROUTINE Instructions: Dialysis Diet (DC), End Stage Kidney Disease (DC) Additional Instructions: cont outpt HD ( CHRISTINE provided contact for [facility]) ff up with PMD eddy Referrals: Lex Henry MD [Staff Provider] -
[2017-02-10 08:29] VITALS: BP 151/63; PULSE 61; TEMP 98; O2SAT 95
--- NOTE | 2017-02-10 16:00 | CP.PCM.PN ---
Subjective - Date & Time of Evaluation Date of Evaluation: 02/10/17 Time of Evaluation: 10:15 - Subjective Subjective: Patient feeling well; no sob; tolerating diet; Objective - Vital Signs/Intake and Output Vital Signs (last 24 hours): Temp Pulse Resp BP Pulse Ox 98.0 F 61 18 151/63 H 95 02/10/17 08:28 02/10/17 09:21 02/10/17 08:28 02/10/17 09:21 02/10/17 08:28 - Labs Labs: 02/10/17 06:00 02/10/17 06:00 PT 9.6 Seconds (9.8-13.1) L 02/09/17 01:30 INR 0.9 (0.9-1.2) 02/09/17 01:30 APTT 28.4 Seconds (25.6-37.1) 02/09/17 01:30 - Constitutional Appears: Well, No Acute Distress - Head Exam Head Exam: NORMAL INSPECTION - Eye Exam Eye Exam: Normal appearance - ENT Exam ENT Exam: Mucous Membranes Moist - Respiratory Exam Respiratory Exam: Clear to Ausculation Bilateral, NORMAL BREATHING PATTERN - Cardiovascular Exam Cardiovascular Exam: RRR, +S1 - GI/Abdominal Exam GI & Abdominal Exam: Soft. absent: Distended, Tenderness - Extremities Exam Additional comments: minimal leg edema; - Neurological Exam Neurological Exam: Alert, Awake - Psychiatric Exam Psychiatric exam: Normal Affect, Normal Mood - Skin Skin Exam: Normal Color, Warm. absent: Cyanosis Assessment and Plan (1) End stage renal disease Assessment & Plan: Dialyzed urgently yesterday; now with stable volume and electrolyte status; no urgency for HD today; will likely need HD on Sunday or Sunday; stable for d/c home today despite no outpatient HD center setup yet but process already underway; if outpatient HD not setup by Sunday, patient told to come to ED to avoid serious hyperkalemia and volume overload; family instructed to call our service on Sunday to coordinate care; -starting lasix 80 mg bid Status: Chronic (2) Pulmonary HTN Assessment & Plan: Seen on echo; possibly secondary to COPD; will benefit from additional diuresis and UF on HD; Status: Chronic (3) Anemia Assessment & Plan: Hgb stable, at goal for ESRD (10-11g); Status: Chronic (4) Chronic kidney disease-mineral and bone disorder Assessment & Plan: Phos mildly elevated; starting Ca carbonate 1 tab w/ meals; Status: Chronic (5) Hyperkalemia Assessment & Plan: Resolved; lasix should help control K as well; 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
== END 2017-02-10 12:28 | disposition home or self-care (01) ==
LOC: H.ER 00:31 → H.ERHOLD 02:24 → H.TEL 07:00 → INTOOBSV 13:32 → OBSVTOIN 13:32
PROVIDERS: ADMIT Internal Medicine; ATTEND Internal Medicine
DX: I16.0 Hypertensive urgency (principal); I12.0 Hypertensive chronic kidney disease with stage 5 chronic kidney disease or end stage renal disease; N18.6 End stage renal disease; D63.1 Anemia in chronic kidney disease; E87.5 Hyperkalemia; I27.2 Other secondary pulmonary hypertension; R07.89 Other chest pain; E16.2 Hypoglycemia, unspecified; M89.9 Disorder of bone, unspecified; Z99.2 Dependence on renal dialysis; Z87.891 Personal history of nicotine dependence
CPT/HCPCS: 36415; 71020; 78582; 80048; 80053; 80061; 80074; 81003; 82728; 82948; 83540; 83550; 83880; 84100; 84439; 84443; 84484; 85025; 85027; 85610; 85730; 87040; 93005; 93306; 96365; 96372; 96375; 96376; 99283; A9567; G0378; J0360; J0610; J1644